=== PATIENT | female | born 1980 | race Caucasian/White ===

== ENCOUNTER → 2016-11-05 | Outpatient (CLI) | payer OTHER ==
[~2016-11-05] VITALS: Ht 162.6 cm; Wt 63.1 kg
[~2016-11-05] MED LIST: INDOCIN25 MG PO; MIRALAX17 GM PO; Motrin PO; Natalcare Rx,Pramile PO; PROBIOTIC1 EAC1 PO; Percocet 5/325,Endoc PO; VALIUM5 MG PO
== END | disposition home or self-care (01) ==
LOC: AMB 12:26
PROC: 0DB68ZX Excision of Stomach, Via Natural or Artificial Opening Endoscopic, Diagnostic (ICD-10-PCS; principal; 2016-11-05)
DX: K29.70 Gastritis, unspecified, without bleeding (principal); K44.9 Diaphragmatic hernia without obstruction or gangrene; R10.9 Unspecified abdominal pain; R14.0 Abdominal distension (gaseous); R19.4 Change in bowel habit; R11.0 Nausea; Z88.2 Allergy status to sulfonamides
CPT/HCPCS: 88305; 88342 TC; B4087; J2250; J2405; J3010